=== PATIENT | male | born 2000 | race Caucasian/White ===

== ENCOUNTER → 2021-01-10 | Outpatient (CLI) | payer OTHER | LOC: M LABSMTC 12:25 | PROVIDERS: ATTEND Family Medicine | DX: Z11.52 Encounter for screening for COVID-19 (principal) | CPT/HCPCS: C9803; U0003 ==

== ENCOUNTER 2021-02-07 18:44 | Emergency (ER) | payer OTHER ==
[~2021-02-07] VITALS: Ht 175.3 cm; Wt 88.6 kg
[2021-02-07 18:44] VITALS: BP 162/82
== END 2021-02-07 23:35 | disposition left against medical advice (07) ==
LOC: M ED 18:44
DX: Z53.21 Procedure and treatment not carried out due to patient leaving prior to being seen by health care provider (principal)